=== PATIENT | female | born 1945 | race Caucasian/White ===

== ENCOUNTER 2020-10-25 08:43 | Emergency (ER) | payer MEDICARE, OTHER ==
[~2020-10-25] VITALS: Ht 170.2 cm; Wt 54.2 kg
[~2020-10-25 08:43] MED LIST: Z.0.ACTONEL35 MG PO; Z.0.ESIDRIX25 MG PO; Z.0.LISINOPRIL5 MG PO; Z.0.TIROSINT75 MCG PO; Z.0.ZOCOR80 MG PO; Z.2.METFORMIN HCL500 PO
[2020-10-25] MEDS ORDERED: JANUMET 50-5001 EACH (09:02)
[2020-10-25] MEDS ORDERED: ATORVASTATIN CA20 MG PO (09:02)
[2020-10-25] MEDS ORDERED: BACITRACIN-POL3.5 GM OS (09:18)
[2020-10-25] MEDS ORDERED: CEPHALEXIN500 MG PO (09:19)
[2020-10-25] MEDS ORDERED: TOBREX3.5 GM OS (10:58)
== END 2020-10-25 09:33 | disposition home or self-care (01) ==
LOC: FSED 08:52
DX: H00.014 Hordeolum externum left upper eyelid (principal); I10 Essential (primary) hypertension; E11.9 Type 2 diabetes mellitus without complications; E78.5 Hyperlipidemia, unspecified; E03.9 Hypothyroidism, unspecified
CPT/HCPCS: 99282